=== PATIENT | male | born 1930 | race Caucasian/White ===

== ENCOUNTER 2016-07-21 20:38 | Observation (INO) | payer MEDICARE ==
--- NOTE | 2016-07-21 22:10 | ERPHSYRPT ---
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 right ear and left arm no other injuries -he is cofused and pulling at dressings and c collar Triage Nursing Assessment: pt is awake and talking chase stroke june 08 causing him vascular dementia Physician History: Dementia at baseline Occurred: just prior to arrival Reason for Fall: lost balance Injuries/Pain Location: head, chest Loss of Consciousness: unsure, other (unknown) Quality: other (unable to state D/T dementia) Severity of Pain-Max: mild Severity of Pain-Current: mild Modifying Factors: Improves With: movement Associated Symptoms (Fall): denies symptoms Allergies/Adverse Reactions: aspirin Allergy (Verified 07/21/16 22:50) fondaparinux [From Arixtra] Allergy (Verified 07/21/16 22:51) warfarin [From Coumadin] Allergy (Verified 07/21/16 22:55) Hx Tetanus, Diphtheria Vaccination/Date Given: (unknown) - Review of Systems Constitutional: No Symptoms Eyes: No Symptoms Ears, Nose, & Throat: Ear Pain Respiratory: No Symptoms Cardiac: No Symptoms Abdominal/Gastrointestinal: No Symptoms Musculoskeletal: Fall (out of bed onto right side) Skin: Other (laceration right ear) Neurological: Other (baseline dementia) Endocrine: No Symptoms Hematologic/Lymphatic: No Symptoms Immunological/Allergic: No Symptoms - Past Medical History Pertinent Past Medical History: Yes Neurological History: Alzheimer's Disease Cardiac History: Aneurysm, Hypertension Psycho-Social History: No Pertinent History Other Medical History: ppm - Past Surgical History Gastrointestinal: Appendectomy, Hernia Repair - Social History Smoking Status: Never smoker Exposure to second hand smoke: No Drug Use: none Patient Lives Alone: No - Nursing Vital Signs Nursing Vital Signs: Initial Vital Signs Temperature 98.9 F Pulse Rate 65 Respiratory Rate 16 Blood Pressure [] 123/63 Pain Intensity 0 - Volant Coma Score Best Eye Response (Reji): (4) open spontaneously Best Verbal Response (Reji): (4) confused conversation (at baseline) Best Motor Response (Reji): (5) localizes to pain Reji Total: 13 - Physical Exam General Appearance: mild distress Head Injury: contusions, lacerations (right pinna) Eye Exam: eyes nml inspection ENT Exam: airway nml, other (laceration to right pinna), No dental injury Neck Exam: supple, full range of motion, normal alignment Respiratory/Chest Exam: normal breath sounds Cardiovascular Exam: normal heart sounds, regular rate/rhythm Gastrointestinal Exam: soft, normal bowel sounds Back Exam: normal inspection Extremity Exam: swelling (marcelo ankles and pre-tibial), No evidence of injury Peripheral Pulses: dorsalis-pedis (R): 3+, dorsalis-pedis (L): 3+ Neurologic Exam: alert, cooperative Skin Exam: normal color, warm, dry SpO2 Interpretation: normal SpO2: 93 Oxygen Delivery: Room Air Procedures - Laceration/Wound Repair Ear Wound Location: Right, head Wound Length (cm): 7 (Anterior pinna lac 4 cm and posterior pinna 2 lacs vertically of 2 cm length each) Wound's Depth, Shape: superficial, irregular Wound Explored: no foreign body noted Irrigated: Yes Hibiclens Prep: Yes Anesthesia: local, 1% Lidocaine Volume Anesthetic (ccs): 10 Wound Debrided: minimal Wound Repaired With: sutures Suture Size/Type: 5-0, ethilon Number of Sutures: 8 (6 anterior and 2 posterior. Unable to sew further posterior D/T fragile skin which tears free.) Layer Closure?: No Sterile Dressing Applied?: Yes Splint Applied?: No Sling Applied?: No Progress: 07/22/16 01:38 Dressing applied with bleeding control. - Course Nursing assessment & vital signs reviewed: Yes - CT Exams Head CT Interpretation: Negative, Tele-radiologist Report Cervical Spine CT Interpretation: Negative, Tele-radiologist Report (Multilevel Degenerative changes.) Ordered Tests: Active Orders 24 hr Category Date Time Status IV Insertion STAT Care 07/22/16 00:43 Active CERVICAL SPINE WO CONTRAST [CT] Stat Exams 07/22/16 Taken HEAD WITHOUT CONTRAST [CT] Stat Exams 07/21/16 21:59 Taken RIBS UNILATERAL Stat Exams 07/21/16 22:52 Taken BNP [NT PRO BNP] Stat Lab 07/21/16 23:40 Completed CBC W DIFF Stat Lab 07/21/16 23:40 Completed CMP Stat Lab 07/21/16 23:40 Completed Manual Differential NC Stat Lab 07/21/16 23:40 Completed Medication Summary Discontinued Medications Generic Name Dose Route Start Last Admin Trade Name Freq PRN Reason Stop Dose Admin Diphtheria/Tetanus/Acell Pertussis 0.5 ml 07/21/16 22:39 07/21/16 22:52 Adacel Vial IM 07/21/16 22:40 0.5 ml .ONCE ONE Administration Diphtheria/Tetanus/Acell Pertussis Confirm 07/21/16 22:47 Adacel Vial Administered 07/21/16 22:48 Dose 0.5 ml IM .STK-MED ONE Furosemide 40 mg 07/22/16 01:44 Lasix 40 Mg/4 Ml IV 07/22/16 01:45 STAT ONE Hydromorphone HCl 0.5 mg 07/22/16 00:12 07/22/16 00:42 Hydromorphone 1 Mg/Ml Ampule IV 07/22/16 00:13 0.5 mg STAT ONE Administration Hydromorphone HCl Confirm 07/22/16 00:19 Hydromorphone 1 Mg/Ml Ampule Administered 07/22/16 00:20 Dose 1 mg .ROUTE .STK-MED ONE Lidocaine HCl Confirm 07/22/16 01:10 Xylocaine 1% Hcl 20 Ml Mdv Administered 07/22/16 01:11 Dose 1 ml .ROUTE .STK-MED ONE Ondansetron HCl 4 mg 07/22/16 00:13 07/22/16 00:42 Zofran 4 Mg/2 Ml Vial IV 07/22/16 00:14 4 mg STAT ONE Administration Ondansetron HCl Confirm 07/22/16 00:19 Zofran 4 Mg/2 Ml Vial Administered 07/22/16 00:20 Dose 4 mg .ROUTE .STK-MED ONE Lab/Rad Data: Laboratory Result Diagrams 07/21/16 23:40 07/21/16 23:40 Laboratory Results 07/21/16 07/21/16 Range/Units 23:40 23:40 WBC 16.6 H (4.0-10.5) K/mm3 RBC 5.00 (4.1-5.6) M/mm3 Hgb 14.5 (12.5-18.0) gm/dl Hct 44.7 (42-50) % MCV 89.4 (78-100) fl MCH 29.0 (26-32) pg MCHC 32.4 (32-36) g/dl RDW 15.4 H (11.5-14.0) % Plt Count 229 (150-450) K/mm3 MPV 10.0 H (6-9.5) fl Segmented Neutrophils 85 H (36.-66.) % Lymphocytes (Manual) 8 L (24-44) % Monocytes (Manual) 4 (0.0-12.0) % Eosinophils (Manual) 2 (0.00-3.0) % Basophils (Manual) 1 (0.0-1.0) % Differential Comment NORMAL Platelet Estimate NORMAL (NORMAL) Sodium 143 (136-145) mEq/L Potassium 4.7 (3.5-5.1) mEq/L Chloride 108 H (98-107) mEq/L Carbon Dioxide 27.0 (21-32) mEq/L Anion Gap 12.6 (5-15) MEQ/L BUN 22 H (9-20) mg/dL Creatinine 1.32 H (0.55-1.30) mg/dl Estimated GFR 55 ML/MIN Glucose 103 (70-110) MG/DL Calcium 8.6 (8.5-10.1) mg/dL Total Bilirubin 0.2 (0.2-1.0) mg/dL AST 31 (15-37) U/L ALT 44 (12-78) U/L Alkaline Phosphatase 140 H (46-116) U/L NT-Pro-B Natriuret Pep 555 H (0-450) pg/ml Serum Total Protein 6.1 L (6.4-8.2) gm/dL Albumin 2.8 L (3.4-5.0) g/dL - Progress Progress: improved Discussed with Dr.: Roberts (accepts to observation) Counseled pt/family regarding: lab results, diagnosis, need for follow-up, rad results - Departure Time of Disposition: 01:40 Departure Disposition: Observation Clinical Impression: Fall as cause of accidental injury in residential institution as place of occurrence Laceration of ear, external, right, complicated Qualifiers: Encounter type: initial encounter Qualified Code(s): S01.311A - Laceration without foreign body of right ear, initial encounter Rib fracture Qualifiers: Encounter type: initial encounter Rib fracture type: single rib Fracture type: closed Laterality: right Qualified Code(s): S22.31XA - Fracture of one rib, right side, initial encounter for closed fracture CHF (congestive heart failure) Qualifiers: Congestive heart failure type: unspecified congestive heart failure type Congestive heart failure chronicity: acute on chronic Qualified Code(s): I50.9 - Heart failure, unspecified Condition: Stable Critical Care Time: Yes Critical Care Time(excluding separately billable procedures): 75-104 minutes Referrals: KELSI MORRELL MD [Primary Care Provider] - Instructions: Heart Failure
[2016-07-21] MEDS ORDERED: Adacel Vial IM ONE ×2 (22:39→22:47)
[2016-07-21 23:44] LABS: Mean Cell Volume 89.4 fl (78-100); Platelet Count 229 K/mm3 (150-450); Red Cell Distribution Width 15.4 % (11.5-14.0); White Blood Count 16.6 K/mm3 (4.0-10.5)
[2016-07-22] MEDS ORDERED: Hydromorphone 1 mg/ml Ampule IV ONE (00:12)
[2016-07-22] MEDS ORDERED: Zofran 4 MG/2 ML VIAL IV ONE (00:13)
[2016-07-22 00:15] LABS: ALBUMIN 2.8 g/dL (3.4-5.0); ANION GAP 12.6 MEQ/L (5-15); BILIRUBIN,TOTAL 0.2 mg/dL (0.2-1.0); Potassium 4.7 mEq/L (3.5-5.1); Total Protein 6.1 gm/dL (6.4-8.2)
[2016-07-22] MEDS ORDERED: Hydromorphone 1 mg/ml Ampule ONE (00:19)
[2016-07-22] MEDS ORDERED: Zofran 4 MG/2 ML VIAL ONE (00:19)
[2016-07-22 01:04] LABS: Basophil 1 % (0.0-1.0); Eosinophil 2 % (0.00-3.0); Total Cells Counted 100
[2016-07-22 01:05] LABS: Platelet Estimate NORMAL (NORMAL)
[2016-07-22] MEDS ORDERED: XYLOCAINE 1% HCL 20 ML MDV ONE (01:10)
[2016-07-22] MEDS ORDERED: Lasix 40 MG/4 ML IV ONE (01:44)
[2016-07-22] MEDS ORDERED: Lasix 40 MG/4 ML ONE (02:26)
[2016-07-22] MEDS ORDERED: XYLOCAINE 1% HCL 20 ML MDV IJ ONE (02:35)
[2016-07-22] MEDS ORDERED: TYLENOL 325 MG PO PRN (03:09)
[2016-07-22] MEDS ORDERED: DILAUDID 2 MG INJECTION IV PRN (03:09)
[2016-07-22] MEDS ORDERED: Zofran 4 MG/2 ML VIAL IV PRN (03:09)
--- NOTE | 2016-07-22 08:15 | XRAY ---
Indication: Pain following fall. Comparison: None 2 views of the right ribs demonstrates mild osteopenia, old 7th rib fracture, multilevel spinal degenerative changes, moderate right shoulder degenerative changes, and partially visualized cardiac pacer leads. No other bony, articular, or soft tissue abnormalities.
--- NOTE | 2016-07-22 08:18 | XRAY ---
Indication: Status post fall. Multiple contiguous axial images obtained through the head without contrast. Comparison: None Age-appropriate global atrophy, moderate periventricular degenerative micro-ischemia bilaterally, and old left temporal lobe infarct. No acute intracranial hemorrhage, hydrocephalus, or mass effect. Bony calvarium intact. Tiny fluid leveling both maxillary sinuses. Mastoid air cells are clear. Impression: Nonacute senile brain with old left temporal infarct. Incidental paranasal sinus disease. Comment: Preliminary interpretation was made by [facility]. No discrepancy. CTDI 61.76
--- NOTE | 2016-07-22 08:20 | XRAY ---
Indication: Status post fall. Multiple contiguous axial images obtained through the cervical spine. Sagittal and coronal reformatted images obtained. Comparison: None Axial images negative for acute fracture, suspicious bony lesions, or spinal canal stenosis. Multilevel moderate degenerative endplate spurring and bilateral degenerative facet hypertrophy. Sagittal and coronal reformatted images demonstrates normal alignment with multilevel disc space narrowing. No acute compression fracture, subluxation, or jumped facet. Normal-appearing craniocervical junction. Visualized noncontrasted soft tissues demonstrates mild carotid calcifications, right greater than left. Base of the brain and lung apices unremarkable. Tiny fluid leveling in both maxillary sinuses. Impression: 1. Negative for acute fracture/subluxation. 2. Multilevel degenerative disc disease. 3. Paranasal sinus disease. Comment: Preliminary interpretation was made by [facility]. No discrepancy. CTDI 43.82
--- NOTE | 2016-07-22 08:49 | PCM.DCORD ---
- Discharge Discharge Date: 07/22/16 Disposition: DC TO [facility] Condition: Stable Prescriptions: Continue Levetiracetam [Keppra 500 mg ] 1 tab PO BID Tamsulosin HCl 0.4 mg [Flomax 0.4 MG] 0.4 mg PO DAILY Acetaminophen 325 mg [Tylenol 325 mg] 650 mg PO STAT Multivitamin [Multivitamins] 1 each PO DAILY Quetiapine Fumarate [Seroquel] 50 mg PO HS Omeprazole 20 MG [Prilosec 20 mg] 20 mg PO DAILY Nystatin Powder 15 gm [Nystop Powder 15 gm] 30 gm TP DAILY Magnesium Hydroxide 30 ml [Milk of Magnesia 30 ml] 30 ml PO DAILY PRN PRN PRN Reason: Constipation Metoprolol Tartrate 25 mg PO BID Lisinopril [Zestril] 30 mg PO DAILY Levothyroxine Sodium 100 Mcg [Synthroid 100 Mcg] 100 mcg PO DAILY Cephalexin Mh 500 mg [Keflex 500 mg] 500 mg PO BID Carvedilol 12.5 mg [Coreg 12.5 mg] 12.5 mg PO BID Atorvastatin Calcium 10 mg PO HS Amiodarone HCl 200 mg [Cordarone 200 MG] 200 mg PO DAILY Glucosamine Sulfate 2Kcl [Glucosamine] 1,500 mg PO DAILY Gabapentin 300 mg PO DAILY Instructions: Heart Failure Additional Instructions: neuro checks q4 hours at [facility] Follow up with: KELSI MORRELL MD [Primary Care Provider] - Forms: Patient Portal Information
[2016-07-22] MEDS ORDERED: NYSTOP POWDER 15 GM TP SCH (10:00)
[2016-07-22] MEDS ORDERED: MILK OF MAGNESIA 30 ML PO PRN (10:23)
[2016-07-22] MEDS ORDERED: TYLENOL 325 MG PO SCH (10:30)
[2016-07-22] MEDS: KEPPRA 500 MG PO SCH ×2 (10:43→11:11)
[2016-07-22] MEDS: Cordarone 200 MG PO SCH ×2 (10:43→11:10)
[2016-07-22] MEDS: KEFLEX 500 MG PO SCH ×2 (10:43→11:11)
[2016-07-22] MEDS: NEURONTIN 300 MG PO SCH ×2 (10:43→11:11)
[2016-07-22] MEDS: Lopressor 25MG Tab PO SCH ×2 (10:43→11:10)
[2016-07-22] MEDS: COREG 12.5 MG PO SCH ×2 (10:43→11:11)
[2016-07-22] MEDS: Flomax 0.4 MG PO SCH ×2 (10:43→11:11)
[2016-07-22] MEDS: SYNTHROID 100 MCG PO SCH ×2 (10:43→11:11)
[2016-07-22] MEDS: Zestril 10 MG PO SCH ×2 (10:43→11:17)
[2016-07-22] MEDS: Protonix 40MG Tablet PO SCH ×2 (10:43→11:10)
[2016-07-22] MEDS: THERAGRAN MULTIVITAMIN PO SCH ×2 (10:43→11:09)
[2016-07-22] MEDS ORDERED: MEDICATION INTERVENTION MC SCH (10:45)
[2016-07-22 10:46] VITALS: BP 120/58; PULSE 60; O2SAT 92
[2016-07-22] MEDS ORDERED: Seroquel 100 MG PO SCH (22:00)
[2016-07-22] MEDS ORDERED: Zocor 10MG PO SCH (22:00)
[2016-07-22] MEDS ORDERED: NON-FORMULARY ITEM (Quetiapine Fumarate [Seroquel] 50 MG) PO SCH (22:00)
[2016-07-22] MEDS ORDERED: NON-FORMULARY ITEM (Atorvastatin Calcium [Atorvastatin Calcium] 10 MG) PO SCH (22:00)
[2016-07-23] MEDS ORDERED: NON-FORMULARY ITEM (Lisinopril [Zestril] 30 MG) PO SCH (10:00)
[2016-07-23] MEDS ORDERED: NON-FORMULARY ITEM (Multivitamin [Multivitamins] 1 EACH) PO SCH (10:00)
[2016-07-23] MEDS ORDERED: GLUCOSAMINE SULFATE 1500 MG PO SCH (10:00)
[2016-07-23] MEDS ORDERED: NON-FORMULARY ITEM (Omeprazole 20 Mg [Prilosec 20 Mg] 20 MG) PO SCH (10:00)
--- NOTE | 2016-07-24 12:04 | SSS ---
DISCHARGE DIAGNOSES: 1) FALL. 2) LACERATION TO HIS EAR. 3) HISTORY OF PREVIOUS CEREBROVASCULAR ACCIDENT WITH DEMENTIA. HISTORY: The patient is an 86 year-old white male patient who currently had a fall at the halfway sustaining a laceration on his right ear. The patient was seen in the emergency room and evaluated. His laceration was repaired. The patient was felt the need to have evaluation with neural checks in the hospital due to closed head injury and his fall. It was thought that initially the patient might have had a rib fracture but according to the radiologist it was an old rib fracture. There is mild osteopenia otherwise noted. PHYSICAL EXAMINATION: Revealed an elderly white male patient who is currently resting up in a chair. He is not on any supplemental oxygen. His vital signs on admission showed temperature 98.9F, pulse 65, respiratory rate 16, blood pressure 123/63. HEENT: Revealed the head to be bandaged with laceration repair on right pinna. Pupils equal round reactive to light. Extraocular movements intact. Oropharynx is pink and moist. NECK: Supple without lymphadenopathy, thyromegaly or JVD. CHEST: Clear to auscultation with good air movement bilaterally. HEART: Regular rate and rhythm without significant murmurs, rubs or gallops heard. ABDOMEN: Soft, nontender, nondistended without hepatosplenomegaly or masses. EXTREMITIES: Without clubbing or cyanosis. There is edema in the right leg compared to the left consistent with mild paresis due to his CVA. LAB DATA AND TESTS: Showed white blood cell count to be somewhat elevated at 16,600 with 85 polys, hemoglobin 14.5, PLT count 229,000. His metabolic panel showed BUN 22, creatinine 1.32, glucose 103 nonfasting. His Pro-BNP was slightly elevated at 555. Liver enzymes were normal. His x-rays again showed the old fracture in the seventh rib and mild osteopenia. He had CT scan of the head and neck which were negative for acute injury. HOSPITAL COURSE: The patient after admission was doing well. He was able to eat breakfast without difficulty. He is now resting in a chair. He does arouse and answer questions but they are not cogent. His status appears to be back to his usual state of health status post the fall. The patient was felt to be ready for discharge back to the halfway on his usual home medications to have sutures removed in one week. They are to continue to do neural checks at the halfway the next day and he is to return should he have any problems in the interim.
== END 2016-07-22 11:35 ==
LOC: ED 20:38 → MED SURG 07-22 02:50
PROVIDERS: ADMIT Family Medicine; ATTEND Family Medicine
DX: S01.311A Laceration without foreign body of right ear, initial encounter (principal); W18.30XA Fall on same level, unspecified, initial encounter; Y92.129 Unspecified place in nursing home as the place of occurrence of the external cause; Z86.73 Personal history of transient ischemic attack (TIA), and cerebral infarction without residual deficits; I10 Essential (primary) hypertension; F03.90 Unspecified dementia, unspecified severity, without behavioral disturbance, psychotic disturbance, mood disturbance, and anxiety; R07.81 Pleurodynia; M85.80 Other specified disorders of bone density and structure, unspecified site; Z79.01 Long term (current) use of anticoagulants; Z79.899 Other long term (current) drug therapy
CPT/HCPCS: 36000; 36415; 70450; 71100; 72125; 80053; 83880; 85025; 90715; 93268; 94760; 96372; 96374; 96375; 99285; G0378; J1170; J1940; J2405; A9270-GY